=== PATIENT | male | born 1965 ===

== ENCOUNTER 2021-07-04 06:37 | Day surgery (SDC) | payer MEDICARE, MEDICAID ==
[~2021-07-04 06:37] MED LIST: Acetaminophen 325 MG Tab PO SCH; Lactated Ringers 1,000 ML IV SCH; Lidocaine 1%/Sod Bicarbonate in NS 8.4% 1 ML Syringe IDERM PRN; Pregabalin 25 MG Cap PO SCH; Sodium Chloride 0.9% 10 ML Syringe FLUSH PRN; Sodium Chloride 0.9% 10 ML Syringe FLUSH SCH; oxyCODONE ER 10 MG TAB.ER PO SCH
[2021-07-04] MEDS ORDERED: fentaNYL 100 MCG/2 ML SDV ONE (06:58)
[2021-07-04] MEDS ORDERED: Lidocaine 1% 4 ML ONE (06:58)
[2021-07-04] MEDS ORDERED: Midazolam 1 MG/ML 2 ML SDV ONE ×2 (06:59→09:19)
[2021-07-04] MEDS ORDERED: Propofol 200 MG/20 ML SDV ONE (06:59)
[2021-07-04] MEDS ORDERED: ceFAZolin 1 GM Vial ONE ×2 (06:59→07:29)
[2021-07-04] MEDS ORDERED: Ondansetron 4 MG/2 ML SDV ONE (07:30)
[2021-07-04] MEDS ORDERED: Dexamethasone 4 MG/ML 5 ML MDV ONE (07:31)
[2021-07-04] MEDS ORDERED: Lactated Ringers 1,000 ML ONE ×2 (08:24→08:35)
[2021-07-04] MEDS ORDERED: HYDROmorphone 0.5 MG/0.5 ML Syringe IVPUSH PRN (08:30)
[2021-07-04] MEDS ORDERED: ePHEDrine 50 MG/ML SDV ONE (08:30)
[2021-07-04] MEDS ORDERED: Ondansetron 4 MG/2 ML SDV IVPUSH PRN (08:30)
[2021-07-04] MEDS ORDERED: fentaNYL 100 MCG/2 ML SDV IVPUSH PRN (08:30)
[2021-07-04] MEDS: Morphine 8 MG, EPINEPHrine 0.3 MG, Cefuroxime 750 MG, Ketorolac 30 MG, Sodium Chloride ... PRN ×10 (08:39→09:08)
[2021-07-04] MEDS: Vancomycin 1 GM SDV ONE ×2 (08:39→09:08)
[2021-07-04] MEDS ORDERED: Ketorolac 30 MG/ML SDV ONE (09:45)
[2021-07-04] MEDS ORDERED: Acetaminophen/HYDROcodone 325-5 MG Tab PO ONE (11:10)
== END 2021-07-04 13:57 | disposition home or self-care (01) ==
LOC: JD.SDS 06:37
PROVIDERS: ATTEND Orthopaedic Surgery
DX: M16.12 Unilateral primary osteoarthritis, left hip (principal); E78.00 Pure hypercholesterolemia, unspecified; N40.0 Benign prostatic hyperplasia without lower urinary tract symptoms; E11.9 Type 2 diabetes mellitus without complications; E66.9 Obesity, unspecified; I10 Essential (primary) hypertension; F32.A Depression, unspecified; Z88.8 Allergy status to other drugs, medicaments and biological substances; Z98.890 Other specified postprocedural states; Z95.0 Presence of cardiac pacemaker; Z79.899 Other long term (current) drug therapy; Z68.41 Body mass index [BMI] 40.0-44.9, adult
CPT/HCPCS: 0055T; 27130; 36415; 73501; 85610; 85730; 86850; 86900; 86901; 97110; 97116; 97162; 97530; A9270; C1713; C1776; J0171; J0690; J0697; J1100; J1885; J2250; J2270; J2405; J2704; J3010; J3370; J7120; 01214